=== PATIENT | female | born 1995 | race Caucasian/White ===

== ENCOUNTER 2020-07-06 23:44 | Inpatient (IN) ==
[2020-07-06] MEDS ORDERED: LACTATED RINGERS 1,000 ML IV SCH (23:45)
[2020-07-06] MEDS ORDERED: FAMOTIDINE 20 MG/2 ML VIAL IV SCH (23:45)
[2020-07-06] MEDS ORDERED: BUTORPHANOL 2 MG/ML VIAL IV PRN (23:53)
[2020-07-06] MEDS ORDERED: ONDANSETRON 4 MG/2 ML VIAL IV PRN (23:53)
[2020-07-06] MEDS ORDERED: MEPERIDINE 50 MG/1 ML VIAL IV PRN (23:53)
[2020-07-07 00:17] LABS: Basophils % 0.3 % (0.0-0.8); Eosinophils # 0.1 10*3/uL (0.0-0.87); Hemoglobin 9.6 GM/DL (12.0-16.0); Immature Granulocytes % 0.6 %; Immature Granulocytes Absolute 0.07 #; Lymphocytes # 2.5 10*3/uL (1.4-4.0); Lymphocytes % 21.6 % (21.3-54.2); Mean Corpuscular Volume 81.8 FL (87-102); Mean Platelet Volume 10.2 FL (9.6-12.0); Monocytes % 7.2 % (1.7-12.7); Neutrophils % 69.3 % (38.7-73.9); Platelet Count 266 T/CUMM (130-400); Red Blood Count 3.79 MC/CUMM (3.8-5.5); Red Cell Distribution Width 16.5 % (9.3-17.3); White Blood Count 11.5 T/CUMM (4-12)
[2020-07-07 00:35] LABS: Alanine Aminotransferase 13 U/L (13-56); Albumin 2.6 G/DL (3.4-5.0); Alkaline Phosphatase 298 U/L (45-117); Aspartate Amino Transferase 17 U/L (0-37); Bilirubin,Total < 0.39 MG/DL (0.2-1.0); Blood Urea Nitrogen 7 MG/DL (7-18); Calcium 8.9 MG/DL (8.5-10.1); Estimated Glom Filtration Rate 123 ML/MIN; Glucose 88 MG/DL (74-106); Osmolality,Calculated 269.8 MOS/KG (273-304); Total Protein 6.7 G/DL (6.4-8.3)
[2020-07-07] MEDS ORDERED: MEPERIDINE 50 MG/1 ML VIAL IV ONE (03:00)
[2020-07-07] MEDS ORDERED: CITRIC ACID/SODIUM CITRATE 30 ML UDCUP PO ONE (03:09)
[2020-07-07] MEDS ORDERED: PROMETHAZINE 25 MG/1 ML VIAL IM ONE (03:09)
[2020-07-07] MEDS ORDERED: LACTATED RINGERS 1,000 ML IV ONE (03:09)
[2020-07-07] MEDS ORDERED: NALOXONE 0.4 MG/ML VIAL IV PRN (03:09)
[2020-07-07] MEDS ORDERED: hydrOXYzine HCL 25 MG/1 ML VIAL IM PRN (03:09)
[2020-07-07] MEDS ORDERED: ePHEDrine 50 MG/ML VIAL IV PRN (03:09)
[2020-07-07] MEDS ORDERED: diphenhydrAMINE 50 MG/1 ML VIAL IV PRN ×2 (03:09)
[2020-07-07] MEDS: fentaNYL 2 MCG/ROPIV 0.2% EPID 100 ML EPIDURAL SCH ×2 (04:12→10:10)
[2020-07-07 06:01] LABS: Bilirubin,Urine Negative (Negative); Blood, Urine Negative (Negative); Glucose,Urine (UA) Negative (Negative); Ketones,Urine Negative (Negative); Mucus,Urine Occasional /LPF (Occasional); Nitrite,Urine Negative (Negative); Protein,Urine Negative; Urine Appearance CLEAR (Clear); Urine Color Straw (Yellow); Urine Specific Gravity 1.009 (1.001-1.035); Urine Urobilinogen < 2.0 EU/DL (0.2-1.0); WBC,Urine <1 /HPF (0-6)
[2020-07-07] MEDS ORDERED: OXYTOCIN/LR 20 UNIT/1,000 ML BAG IV SCH (07:30)
[2020-07-07] MEDS ORDERED: LIDOCAINE MPF 2% /EPI 20 ML VIAL ONE (10:29)
[2020-07-07] MEDS ORDERED: fentaNYL 100 MCG/2 ML VIAL ONE (10:29)
[2020-07-07] MEDS ORDERED: CARBOPROST TROMETHAMINE 250 MCG/ML AMP IM ONE (13:33)
[2020-07-07] MEDS ORDERED: METHYLERGONOVINE 0.2 MG/1 ML AMP ONE (13:33)
[2020-07-07] MEDS ORDERED: miSOPROStoL 200 MCG TABLET ONE (13:33)
[2020-07-07] MEDS ORDERED: TRANEXAMIC ACID 1,000 MG/10 ML VIAL ONE (13:33)
[2020-07-07] MEDS ORDERED: SODIUM CHLORIDE 0.9% 0 ML IV ONE (13:34)
[2020-07-07 14:55] LABS: Cord Arterial Blood HCO3 17.3 MMOL/L
[2020-07-07 14:59] LABS: Cord Venous Blood HCO3 19.4 MMOL/L; Cord Venous Blood PCO2 43.2 MMHG; Cord Venous Blood PO2 32.2
[2020-07-07] MEDS ORDERED: IBUPROFEN 800 MG TABLET PO ONE (16:27)
[2020-07-07] MEDS ORDERED: WITCH HAZEL PADS 100/JAR TOP PRN (18:16)
[2020-07-07] MEDS ORDERED: BISACODYL 10 MG SUPP RECTAL PRN (18:16)
[2020-07-07] MEDS ORDERED: BENZOCAINE 20%/MENTHOL 0.5% SPRAY 56 GM CAN TOP PRN (18:16)
[2020-07-07] MEDS ORDERED: DIPH/TET/ACEL PERT BOOSTER VACCINE 0.5 ML VIAL IM ONE (18:16)
[2020-07-07] MEDS ORDERED: OXYTOCIN/LR 20 UNIT/1,000 ML BAG IV ONE (18:16)
[2020-07-07] MEDS ORDERED: RHO(D) IMMUNE GLOBULIN 300 MCG SYRINGE IM ONE (18:16)
[2020-07-07] MEDS ORDERED: oxyCODONE/ACETAMINOPHEN 5-325 MG TABLET PO PRN (18:16)
[2020-07-07] MEDS ORDERED: MEASLES/MUMPS/RUBELLA VACCINE 0.5 ML VIAL SUBCUT ONE (18:16)
[2020-07-07] MEDS ORDERED: HYDROCORTISONE 2.5% RECTAL CREAM 30 GM TUBE TOP PRN (18:16)
[2020-07-07] MEDS ORDERED: ACETAMINOPHEN 325 MG TABLET PO PRN (18:16)
[2020-07-07] MEDS ORDERED: LANOLIN 50% CREAM 0.3 OZ TUBE TOP PRN (18:16)
[2020-07-07] MEDS: DOCUSATE SODIUM 100 MG CAPSULE PO SCH (20:52)
[2020-07-07] MEDS: IBUPROFEN 800 MG TABLET PO PRN (23:21)
[2020-07-08] MEDS: oxyCODONE/ACETAMINOPHEN 5-325 MG TABLET PO PRN ×2 (02:09→21:21)
[2020-07-08 05:57] LABS: Basophils % 0.3 % (0.0-0.8); Eosinophils # 0.1 10*3/uL (0.0-0.87); Eosinophils % 0.5 % (0.00-10.9); Hematocrit 26.7 VOL% (35.7-47.0); Immature Granulocytes % 0.4 %; Immature Granulocytes Absolute 0.06 #; Lymphocytes # 1.6 10*3/uL (1.4-4.0); Mean Corpuscular Volume 85.3 FL (87-102); Mean Platelet Volume 10.8 FL (9.6-12.0); Monocytes % 5.5 % (1.7-12.7); Neutrophils % 81.3 % (38.7-73.9); Platelet Count 221 T/CUMM (130-400); Red Blood Count 3.13 MC/CUMM (3.8-5.5); Red Cell Distribution Width 16.9 % (9.3-17.3); White Blood Count 13.7 T/CUMM (4-12)
[2020-07-08] MEDS: IBUPROFEN 800 MG TABLET PO PRN ×2 (06:14→12:15)
[2020-07-08] MEDS ORDERED: INFLUENZA VIRUS VACCINE 0.5 ML SYRINGE IM ONE (09:00)
[2020-07-08] MEDS: FERROUS SULFATE 325 MG TABLET PO SCH ×3 (09:46→21:17)
[2020-07-08] MEDS: DOCUSATE SODIUM 100 MG CAPSULE PO SCH ×2 (09:46→21:17)
[2020-07-08] MEDS ORDERED: RHO(D) IMMUNE GLOBULIN 300 MCG SYRINGE IM ONE (17:02)
[2020-07-09] MEDS: IBUPROFEN 800 MG TABLET PO PRN (06:39)
[2020-07-09] MEDS: DOCUSATE SODIUM 100 MG CAPSULE PO SCH (09:22)
[2020-07-09] MEDS: FERROUS SULFATE 325 MG TABLET PO SCH (09:22)
[2020-07-09 11:15] VITALS: BP 137/74
== END 2020-07-09 12:10 | disposition home or self-care (01) | DRG 807 ==
LOC: N.LDOUT 23:44 → N.LD 23:45 → N.OB 07-07 18:15
PROVIDERS: ADMIT Obstetrics & Gynecology; ATTEND Obstetrics & Gynecology